=== PATIENT | male | born 2000 | race Caucasian/White ===

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

== ENCOUNTER 2019-10-13 21:25 | Emergency (ER) | payer BC, OTHER ==
[~2019-10-13] VITALS: Ht 177.8 cm; Wt 68.0 kg
[~2019-10-13 21:25] MED LIST changes: +DOXYCYCLINE HY100 MG PO
== END 2019-10-14 01:08 | disposition home or self-care (01) ==
LOC: ED 21:25
DX: S51.812A Laceration without foreign body of left forearm, initial encounter (principal); X78.8XXA Intentional self-harm by other sharp object, initial encounter; F17.200 Nicotine dependence, unspecified, uncomplicated
CPT/HCPCS: 12002; 80053; 80176; 81001; 84443; 85025; 99285-25; G0480

== ENCOUNTER 2023-05-03 09:50 | Day surgery (SDC) | payer BC, OTHER ==
[2023-05-01 10:14] VITALS: BP 106/68
[~2023-05-03] VITALS: Ht 177.8 cm; Wt 66.8 kg
[~2023-05-03 09:50] MED LIST changes: +DICLOFENAC SODI75 MG PO; +LAMICTAL25 M1 PO; +PRILOSEC OTC20 MG PO
[2023-05-03 10:05] VITALS: BP 134/73
--- NOTE | 2023-05-03 11:17 | NUR ---
1104- PT REPORTS HE IS FEELING NAUSEOUS AND IS WANTING SOMETHING FOR THE NAUSEA. 1108- MARIA R DUVALL CRNA NOTIFIED AND NEW ORDER RECEIVED. 1116- PT REPORTS HE IS FEELING BETTER. PT HAD MENTIONED HE HAS ANXIETY, BUT IS CURRENTLY FEELING OKAY AND DENIES NEEDING ANYTHING FOR ANXIETY AT THIS TIME. 1118- PT AND PT'S FAMILY UPDATED ON WAIT TIMES FOR SURGERY. ALL STATE UNDERSTANDING.
[2023-05-03] MEDS ORDERED: OXYCODON-ACETA1 EAC2 PO (14:11)
[2023-05-03] MEDS ORDERED: ACETAMINOPHEN500 MG PO (14:11)
[2023-05-03] MEDS ORDERED: IBUPROFEN600 MG PO (14:11)
--- NOTE | 2023-05-03 14:14 | NUR ---
05/03/23 1414 Sheets,Asia 1406 PT ARRIVED TO PACU ON 6L VIA MASK, PT ASLEEP AND RESP EVEN AND UNLABORED. PT NONASOURSABLE TO TACTILE STIMULI.
[2023-05-03 14:38] VITALS: BP 143/91
--- NOTE | 2023-05-03 14:42 | NUR ---
PT AMBULATED TO THE RESTROOM HE STATES HE NEEDS TO HAVE A BOWEL MOVEMENT. PT PROVIDED A URINAL. PT DENIES ANY DIZZINESS OR NAUSEA AND STATES HIS PAIN IS "BETTER" THAN BEFORE SURGERY.
--- NOTE | 2023-05-03 14:59 | NUR ---
PT REMAINS IN THE RESTROOM. PT REPORTS HE HAS NO DIZZINESS OR NAUSEA. PT STATES, "IT IS JUST TAKING LONGER THAN EXPECTED TO GO TO THE BATHROOM".
--- NOTE | 2023-05-03 15:22 | NUR ---
1516- PT STATES HE IS UNABLE TO URINATE OR HAVE A BOWEL MOVEMENT AT THIS TIME. PT ABLE TO AMBULATE BACK TO BED. PT REPORTING PAIN A 6/10 AND STATES HE WOULD LIKE SOMETHING FOR PAIN. PT PROVIDED CRACKERS, JELL-O., WATER, AND LEMON [place] SODA PROVIDED. PT ABLE TO EAT A CRACKER PRIOR TO MEDICATION ADMINSTRATION.
--- NOTE | 2023-05-03 15:34 | NUR ---
PT'S UMBILICAL STERI STRIPS ARE COMING OFF. DR. GURROLA NOTIFIED OF THIS AND PT UNABLE TO URINATE AFTER SPENDING APPROXIMATELY [address] RE[address]OM[address] GRUROLA WOULD LIKE THE PT TO BE BLADDER SCANNED AND THE STERI STRIPS TO BE REPLACED. PT BLADDER SCANNED FOR 264 ML. IV FLUIDS INFUSING. PT HAS WATER AND LEMON [place] SODA AT THE BEDSIDE. PT WANTS HIS DRESSING REINFORCED ONCE THE PAIN MEDICATION HAS HAD TIME TO WORK.
[2023-05-03 15:41] VITALS: BP 148/92
[2023-05-03 16:27] VITALS: BP 139/75
--- NOTE | 2023-05-03 16:30 | NUR ---
DRESSING CHANGE COMPLETE THE STERI STRIPS ON THE UMBILIUS HAD FALLEN OFF. NEW STERI STRIPS PLACED. GAUZE REINFORCEMENTS TO THE MID UPPER INCISION AND THE BOTTOM UPPER RIGHT QUADRANT REPLACED. PT REPORTS HE FEELS LIKE HE NEEDS MORE PAIN MEDICATION. DR. GURROLA NOTIFIED AND NEW ORDER RECEIVED. PT'S FAMILY AT THE BEDSIDE. CALL LIGHT WITH PT.
--- NOTE | 2023-05-03 17:08 | NUR ---
1655- INTO PT'S ROOM TO SEE IF HE WANTS TO GET UP TO URINATE. PT DENIES NEEDING TO URINATE. PT HAS WATER AND LEMON [place] SODA IN THE ROOM. IV REMAINS INFUSING. CHECKED PT'S DRESSINGS. THE UPPER MID INCISION GAUZE IS SATURATED. 1701- DR. GURROLA CONTACTED ABOUT THE PT'S DRESSING BEING SATURATED. DR GURROLA WANTS PT'S DRESSING CHANGED. 1705- NEW STERI STRIPS AND GAUZE APPLIED. PT TOLERATED WELL.
[2023-05-03 17:27] VITALS: BP 145/85
--- NOTE | 2023-05-03 17:39 | NUR ---
AFTER AMBULATING TO THE RESTROOM AND BACK TO BED. PT REPORTS HIS PAIN IS A 4/10. PT STATES THIS IS TOLERABLE FOR HIM AND HE FEELS READY TO GET DRESSED TO GO HOME. PT'S FAMILY AT THE BEDSIDE.
--- NOTE | 2023-05-05 10:44 | OR ---
[facility] [address], [place] [address] Signed DATE OF OPERATION: 05/03/2023 SURGEON: Gaudencio Gurrola MD PREOPERATIVE DIAGNOSES: 1. History of Ramstedt pyloromyotomy, age 6 weeks ([facility]). 2. Chronic acalculous cholecystitis, ejection fraction 3% on CCK HIDA test, negative ultrasound. POSTOPERATIVE DIAGNOSES: 1. History of Ramstedt pyloromyotomy, age 6 weeks ([facility]). 2. Chronic acalculous cholecystitis, ejection fraction 3% on CCK HIDA test, negative ultrasound. PROCEDURES: 1. Laparoscopic cholecystectomy with intraoperative cholangiogram. 2. Surgeon-directed fluoroscopy. ANESTHESIA: General endotracheal, Anson Cisneros, CHIP BIN CONVEYOR TENDER and local 10 mL of 0.25% Marcaine with epinephrine. INDICATION: This 22-year-old white man is known to me from the past. At age 6 weeks, I performed Ramstedt pyloromyotomy for pyloric stenosis. In the meantime, he has done well but recently developed symptoms of biliary colic including right subcostal and epigastric pain particularly worsened after food intake. A CCK-HIDA test was ordered by his primary provider, Reinier Gonzalez, which showed an ejection fraction of only 3%. He does have typical biliary symptoms. A gallbladder ultrasound was obtained under my direction recently, which confirms no sign of gallstones or other abnormality. Given the findings, his symptoms, the imaging studies and so forth, he is now to undergo laparoscopic cholecystectomy, possible open procedure. The risk of bleeding, infection, bile duct injury, and most importantly failure to cure his symptoms was reviewed in detail. He understands and wished to proceed. FINDINGS: The patient has a thin body habitus. The previous pyloromyotomy incision was still relatively small and well hidden with good cosmesis. The gallbladder itself was chronically inflamed. It was exceedingly small in size, Electronically Signed By: GAUDENCIO GURROLA MD 05/05/23 1044 PATIENT NAME: CLAUDE ROSADO OPERATIVE REPORT DATE OF : 89 REPORT #: [id number] PHYSICIAN: GAUDENCIO GURROLA MD PCP: REINIER GONZALEZ PA-C REPORT IS CONFIDENTIAL AND NOT TO BE RELEASED WITHOUT AUTHORIZATION [facility] [address], [place] [address] Signed however. The liver itself was normal. Cholangiogram showed no sign of biliary anomaly. The cystic duct was markedly narrowed as it is noted and may have contributed to his biliary dysfunction. The gallbladder once excised, did show chronic inflammatory changes of the mucosa. No sign of cholesterolosis and certainly no stones or neoplasm. Notably, the pyloromyotomy at the region of the duodenum was well healed and barely perceptible. DESCRIPTION OF PROCEDURE: The patient was brought to the operating room, and given a general endotracheal anesthetic. Preoperative antibiotic Ancef was given. Sequential compression device stockings were used and heparin subcutaneously administered. After satisfactory general endotracheal anesthesia, the abdomen was clipped and prepared with a chlorhexidine solution and draped sterilely. An infraumbilical incision was made using an open Vero cannula technique. The abdomen entered and pneumoperitoneum achieved to a level of 14 mmHg of carbon dioxide gas. Intra-abdominal inspection showed no sign of ascites or carcinomatosis. The gallbladder appeared chronically inflamed. The liver was normal. Three additional trocars were placed in usual configuration in the subxiphoid, right midclavicular, and right anterior axillary line. Gallbladder was elevated cephalad and retracted laterally. Using blunt electrocautery dissection, the triangle of Calot was dissected free. Given his thin body habitus, good and easy anatomy identification was noted. A dominant cystic artery was noted as was the cystic duct. The cystic duct was relatively narrow. The cystic artery was doubly clipped and divided. A small rent was made in the gallbladder allowed for egress of bile but no spillage of stones or other issues. This area was secured with a grasper. A clip was applied across the gallbladder cystic duct junction and a transverse choledochotomy made in the cystic duct. It was slightly challenging but ultimately the catheter could be insinuated into the duct given its small size. Intraoperative cholangiography was undertaken with surgeon-directed fluoroscopy. Free flow of contrast was noted in biliary tree with prompt emptying into the duodenum. The biliary tree was small in caliber. There was no sign of filling defect, biliary anomaly or other problem. The catheter was removed. The cystic duct was triply clipped and divided. The gallbladder was then dissected free in a retrograde fashion using electrocautery. Gallbladder was placed in an endobag and extracted through the infraumbilical port site, opened on the back table and found to have chronic inflammatory change. No sign of neoplasm or stones. Irrigation was undertaken in the subhepatic space and excess irrigation fluid suctioned free. There was no sign of bile leak, bleeding or other problems. Photographs were taken throughout. Electronically Signed By: GAUDENCIO GURROLA MD 05/05/23 1044 PATIENT NAME: CLAUDE ROSADO OPERATIVE REPORT DATE OF : 89 REPORT #: [id number] PHYSICIAN: GAUDENCIO GURROLA MD PCP: REINIER GONZALEZ PA-C REPORT IS CONFIDENTIAL AND NOT TO BE RELEASED WITHOUT AUTHORIZATION [facility] [address] [place] [address] Signed The trocars were removed under direct visualization showing no sign of bleeding. The infraumbilical fascial incision was reapproximated with interrupted 0 Vicryl suture. A 10 mL of 0.25% Marcaine with epinephrine was injected locally. The trocar incisions were closed with interrupted 3-0 Vicryl. Steri-Strips were applied. The patient was extubated in the operating room, and planning transfer to the recovery room in good condition. Sponge, needle, and instrument counts were reported as correct x3. MD ANTONINA Tavera/JESUS /[id number] cc: MOISÉS Torrez Copies: ~ Electronically Signed By: GAUDENCIO GURROLA MD 05/05/23 1044 PATIENT NAME: CLAUDE ROSADO OPERATIVE REPORT DATE OF : [birth year] REPORT #: [id number] PHYSICIAN: GAUDENCIO GURROLA MD PCP: REINIER GONZALEZ PA-C REPORT IS CONFIDENTIAL AND NOT TO BE RELEASED WITHOUT AUTHORIZATION
--- NOTE | 2023-05-08 11:45 | PATH ---
[facility] [address] [place], [place] [address] Signed SPECIMEN(S): A GALLBLADDER SPECIMEN SOURCE: A. GALLBLADDER CLINICAL HISTORY: Chronic cholecystitis. FINAL PATHOLOGIC DIAGNOSIS: Gallbladder, cholecystectomy: - Benign gallbladder with focal mild chronic inflammation. - Negative for calculi. JVR:[facility] MICROSCOPIC EXAMINATION: Histologic sections of all submitted blocks are examined by light microscopy. These findings, together with the gross examination, support the pathologic diagnosis. GROSS DESCRIPTION: The specimen, labeled and designated "Jayla Rosado" and designated on the requisition "gallbladder," is received in formalin and consists of: Specimen: Previously opened gallbladder. Dimensions: 4.8 x 3.7 x 1.4 cm. Serosa: Green-ingram smooth. Cystic Duct: Unobstructed, margin inked black and shaved. Calculi: Not grossly identified. Mucosa: Green and velvety. Wall thickness: 0.3 cm. Lymph node: No pericystic lymph nodes are grossly identified. Additional: None. Community Health Counselor sections are submitted in (A1). AC (under the direct supervision of a pathologist) The Gross Description was prepared using a voice recognition system. The report was reviewed for accuracy; however, sound-alike word errors, addition and/or deletions may occur. If there is any question about this report, please contact Client Services. PERFORMING LABORATORY: Technical component was performed by [facility], [address] [place] [id number] (CLIA# [id number]). Professional interpretation was PATIENT NAME: CLAUDE ROSADO PATHOLOGY DATE OF : [birth year] REPORT #: [id number] PHYSICIAN: [facility] PCP: REINIER COLBY PA-C REPORT IS CONFIDENTIAL AND NOT TO BE RELEASED WITHOUT AUTHORIZATION [facility] [address] [facility] [place], [place] [address] Signed performed by [facility] [address] [address] (CLIA#: [id number]). Diagnostician: Diogo Zimmerman MD Pathologist Electronically Signed 05/08/2023 Copies: ~ PATIENT NAME: CLAUDE ROSADO PATHOLOGY DATE OF : [birth year] REPORT #: [id number] PHYSICIAN: CHRIS STANLEY PCP: REINIER COLBY PA-C REPORT IS CONFIDENTIAL AND NOT TO BE RELEASED WITHOUT AUTHORIZATION
== END 2023-05-03 17:50 | disposition home or self-care (01) ==
LOC: DS 09:50
PROVIDERS: ATTEND Surgery
PROC: BF121ZZ Fluoroscopy of Gallbladder using Low Osmolar Contrast (ICD-10-PCS; 2023-05-03)
PROC: 0FT44ZZ Resection of Gallbladder, Percutaneous Endoscopic Approach (ICD-10-PCS; principal; 2023-05-03 11:00)
DX: K81.1 Chronic cholecystitis (principal); Q40.0 Congenital hypertrophic pyloric stenosis; Z83.79 Family history of other diseases of the digestive system; R63.4 Abnormal weight loss; Z68.1 Body mass index [BMI] 19.9 or less, adult
CPT/HCPCS: 00790; 74300; J0131; J0690; J1100; J1644; J1885; J2001; J2405; J2704; J3010; J3475; J3490; J7121; Q9967

== ENCOUNTER 2023-05-27 15:16 | Emergency (ER) | payer BC, OTHER ==
[~2023-05-27] VITALS: Ht 177.8 cm; Wt 65.7 kg
--- OUTSIDE RECORDS SUMMARY | ~2023-05-27 | XMS | Continuity of Care Document ---
Demographics + + + | Address | [address] | | | [place] [address] | + + + | Preferred Language | Unknown | + + + | Marital Status | Never | + + + | Rastafarian Affiliation | Unknown | + + + | Race | White | + + + | Ethnic Group | Not or | + + + Author + + + | Author | [facility] | + + + | Organization | [facility] | + + + | Address | [address] | | | [place], [place] [address] | + + + | Phone | | + + + Care Team Providers + + + + | Care Gauge Operator Name | Role | Phone | + + + + Unavailable | Unavailable | + + + + Allergies No information. Encounters No information. Functional Status No information. Immunizations No information. Medications No information. Problems + + + + | date | description | facility | + + + + | 2023-04-19 07:42 | RIGHT UPPER QUADRANT PAIN | [facility] | + + + + | 2023-04-19 08:00 | RIGHT UPPER QUADRANT PAIN | [facility] | + + + + | 2023-05-01 08:36 | RIGHT UPPER QUADRANT PAIN | [facility] | + + + + | 2023-05-01 09:00 | RIGHT UPPER QUADRANT PAIN | [facility] | + + + + | 2023-05-01 09:53 | CHOLECYSTITIS, UNSPECIFIED | [facility] | | | | | + + + + | 2023-05-01 09:53 | RIGHT UPPER QUADRANT PAIN | [facility] | + + + + | 2023-05-01 09:53 | ENCOUNTER FOR | [facility] | | | PREPROCEDURAL LABORATORY | | | | EXAMINATION | | + + + + | 2023-05-03 09:50 | CHRONIC CHOLECYSTITIS | [facility] | + + + + | 2023-05-03 09:50 | 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 Results/Labs No information. Social History +--------+ + + | date | description | facility | +--------+ + + Vital Signs No information."
[~2023-05-27 15:16] MED LIST changes: +ACETAMINOPHEN500 MG PO; +IBUPROFEN600 MG PO; +OXYCODON-ACETA1 EAC2 PO
[2023-05-27 16:24] LABS: INFLUENZA B NAA NEGATIVE (NEGATIVE); RESPIRATORY SYNCYTIAL VIR NAA NEGATIVE (NEGATIVE)
[2023-05-27 17:24] VITALS: BP 132/74
== END 2023-05-27 17:24 | disposition home or self-care (01) ==
LOC: ED 15:16
PROVIDERS: Emergency Medicine
DX: U07.1 COVID-19 (principal); F17.200 Nicotine dependence, unspecified, uncomplicated
CPT/HCPCS: 87502; 99283; C9803; U0002

== ENCOUNTER 2024-12-07 14:50 | Emergency (ER) | payer BC, OTHER ==
[~2024-12-07] VITALS: Ht 177.8 cm; Wt 66.4 kg
[2024-12-07] MEDS ORDERED: SODIUM CHLORIDE 0.9% 1,000 ML IV ONE (15:15)
[2024-12-07] MEDS ORDERED: PANTOPRAZOLE SODIUM 40 MG/10 ML VIAL IV ONE (15:15)
[2024-12-07] MEDS ORDERED: MAGNESIUM HYDROXIDE/AL HYDROX 30 ML CUP PO ONE (15:15)
[2024-12-07 15:16] LABS: BASOPHILS 0.7 % (0-2); EOSINOPHILS 1.1 % (0-6); HEMATOCRIT 48.8 % (35.0-50.0); HEMOGLOBIN 17.1 g/dL (12.0-18.0); LYMPHOCYTES 27.2 % (24-44); MCH 31.6 (27-36); MCHC 35.1 g/dl (30-36); PLATELET COUNT 248 K/uL (140-440); RBC 5.43 M/ul (4.3-5.7); RDW 13.6 (10.5-15.0)
[2024-12-07 15:25] LABS: ALBUMIN 4.2 g/dL (3.4-5.0); ALBUMIN/GLOBULIN RATIO 1.31 (1.1-2.4); ANION GAP 9.5 (7-21); BILIRUBIN, TOTAL 0.8 mg/dL (0.2-1.0); BUN/CREATININE RATIO 12.79 (6.0-28.6); CALCIUM 8.7 mg/dL (8.5-10.1); CREATININE, SERUM 0.86 mg/dL (0.70-1.30); POTASSIUM 3.5 mmol/L (3.5-5.1); PROTEIN, TOTAL 7.4 g/dL (6.4-8.2)
[2024-12-07] MEDS ORDERED: CARAFATE1 GM PO (15:51)
[2024-12-07 15:59] VITALS: BP 131/78
== END 2024-12-07 16:19 | disposition home or self-care (01) ==
LOC: ED 14:50
PROVIDERS: Emergency Medicine
DX: K29.20 Alcoholic gastritis without bleeding (principal); F17.200 Nicotine dependence, unspecified, uncomplicated; Z79.899 Other long term (current) drug therapy
CPT/HCPCS: 36415; 80053; 83690; 85025; 96374; 99284-25; A9270; J2470; J7030

== ENCOUNTER 2025-03-11 18:18 | Emergency (ER) | payer BC, OTHER ==
[~2025-03-11] VITALS: Ht 177.8 cm; Wt 66.4 kg
[~2025-03-11 18:18] MED LIST changes: +CARAFATE1 GM PO
[2025-03-11] MEDS ORDERED: ESCITALOPRAM OX10 MG PO (18:48)
[2025-03-11 20:10] VITALS: BP 124/76
== END 2025-03-11 20:11 | disposition home or self-care (01) ==
LOC: ED 18:18
DX: S91.111A Laceration without foreign body of right great toe without damage to nail, initial encounter (principal); F17.200 Nicotine dependence, unspecified, uncomplicated; W45.8XXA Other foreign body or object entering through skin, initial encounter; Z79.899 Other long term (current) drug therapy
CPT/HCPCS: 73630; 99283